=== PATIENT | female | born 2000 | race Caucasian/White ===

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

== ENCOUNTER 2021-02-01 16:01 | Inpatient (IN) | payer OTHER, SELFPAY ==
[~2021-02-01] VITALS: Ht 157.5 cm; Wt 96.6 kg
[2021-02-01] MEDS ORDERED: PNV91TAB8 PO (16:48)
[2021-02-01] MEDS ORDERED: CARBOPROST 250 MCG/ML AMP IM PRN (16:50)
[2021-02-01] MEDS ORDERED: METHYLERGONOVINE 0.2 MG/ML AMP IM PRN (16:50)
[2021-02-01] MEDS ORDERED: LACTATED RINGERS 500 ML IV SCH (16:50)
[2021-02-01] MEDS: LACTATED RINGERS 1,000 ML IV SCH ×2 (17:45→19:26)
[2021-02-01] MEDS: PROMETHAZINE 25 MG/ML VIAL IVP PRN (17:50)
[2021-02-01] MEDS: NALBUPHINE 10 MG/ML AMP IVP PRN (17:51)
[2021-02-01 18:08] LABS: BASOPHILS % (AUTO) 0.4 % (0.0-2.0); EOSINOPHILS # (AUTO) 0.1 K/uL (0-0.4); EOSINOPHILS % (AUTO) 0.8 % (0.0-4.0); HEMOGLOBIN 11.7 g/dL (12.0-16.0); LYMPHOCYTES # (AUTO) 1.3 K/uL (2.5-16.5); LYMPHOCYTES % (AUTO) 13.9 % (20.5-51.1); MEAN CORPUSCULAR HEMOGLOBIN 33 pg (27-31); MEAN CORPUSCULAR HGB CONC 34 g/dL (33-37); MONOCYTES # (AUTO) 0.6 K/uL (0.8-1.0); MONOCYTES % (AUTO) 6.4 % (1.7-9.3); NEUTROPHILS # (AUTO) 7.6 K/uL (1.8-7.7); NEUTROPHILS % (AUTO) 78.5 % (42.2-75.2); PLATELET COUNT (AUTO) 241 K/uL (140-450); RED BLOOD CELL COUNT(AUTO) 3.61 MIL/uL (4.20-5.40); RED CELL DISTRIBUTION WIDTH 14.7 % (11.6-13.7); WHITE BLOOD COUNT (AUTO) 9.6 K/uL (4.5-11.0)
[2021-02-01 18:17] VITALS: BP 112/69
[2021-02-01 18:32] LABS: ALBUMIN 2.6 g/dL (3.4-5.0); ANION GAP 10.9 (8-16); CARBON DIOXIDE 25.9 mmol/L (21-32); CREATININE 0.5 mg/dL (0.6-1.3); POTASSIUM 3.8 mmol/L (3.5-5.1); TOTAL BILIRUBIN 0.4 mg/dL (0.0-1.0)
[2021-02-01 20:42] LABS: APPEARANCE,URINE HAZY (CLEAR); COLOR,URINE YELLOW (YELLOW)
[2021-02-01 20:43] LABS: BILIRUBIN,URINE NEGATIVE (NEGATIVE)
[2021-02-01 20:44] LABS: BLOOD, URINE 1+ (NEGATIVE); PH,URINE 7.5 (5.0-9.0)
[2021-02-01 20:45] LABS: LEUKOCYTE ESTERASE ,URINE 2+ (NEGATIVE); NITRITE, URINE NEGATIVE (NEGATIVE)
[2021-02-01 20:47] LABS: UGLUCOSE NEGATIVE (NEGATIVE)
[2021-02-01 21:43] LABS: TRICHOMONAS,URINE Few /HPF (None Seen)
[2021-02-02] MEDS: PROMETHAZINE 25 MG/ML VIAL IVP PRN (01:28)
[2021-02-02] MEDS: NALBUPHINE 10 MG/ML AMP IVP PRN (01:29)
[2021-02-02] MEDS: LACTATED RINGERS 1,000 ML IV SCH ×2 (02:53→10:32)
--- NOTE | 2021-02-02 08:22 | NUR ---
PATIENT HAS BEEN SCREENED AND CATEGORIZED LOW NUTRITION RISK. PATIENT WILL BE SEEN WITHIN 7 DAYS OF ADMISSION. 02/08/[address]
== END 2021-02-02 18:57 | disposition home or self-care (01) | DRG 566 ==
LOC: MLD 16:25 → OBSVTOIN 17:04
PROVIDERS: ADMIT Obstetrics & Gynecology; ATTEND Obstetrics & Gynecology
DX: O62.8 Other abnormalities of forces of labor (principal); Z20.822 Contact with and (suspected) exposure to COVID-19; Z90.49 Acquired absence of other specified parts of digestive tract; Z91.018 Allergy to other foods
CPT/HCPCS: 36415; 80053; 81001; 85025; 86592; 86886; 86900; 86901; 87086; G0378; J2300; J2550